=== PATIENT | female | born 1995 | race American Indian/Alaskan Native ===

== ENCOUNTER 2018-02-24 11:03 | Emergency (ER) | payer SELFPAY ==
[2018-02-24 11:16] VITALS: BP 110/70
[2018-02-24 11:41] LABS: Basophils # (Auto) 0.1 K/mm3 (0.0-0.1); Basophils % (Auto) 0.7 % (0.0-1.8); Eosinophils # (Auto) 0.4 K/mm3 (0.0-0.4); Eosinophils % (Auto) 3.3 % (0.0-4.3); Hematocrit 35.4 % (30.3-42.9); Hemoglobin 11.3 gm/dl (10.1-14.3); Lymphocytes # (Auto) 1.8 K/mm3 (1.2-5.4); Lymphocytes % (Auto) 16.9 % (13.4-35.0); Mean Corpuscular HGB Conc 32 % (30-34); Monocytes # (Auto) 0.9 K/mm3 (0.0-0.8); Monocytes % (Auto) 8.7 % (0.0-7.3); Platelet Count 297 K/mm3 (140-440); Red Blood Count 5.25 M/mm3 (3.65-5.03); Red Cell Distribution Width 19.2 % (13.2-15.2)
[2018-02-24 11:51] LABS: Mean Corpuscular Hemoglobin 21 pg (28-32); Mean Corpuscular Volume 68 fl (79-97)
[2018-02-24 11:55] LABS: Albumin 3.9 g/dL (3.9-5); BUN/Creatinine Ratio 8; Blood Urea Nitrogen 5 mg/dL (7-17); Calcium 9.1 mg/dL (8.4-10.2); Hemolysis Index 0
[2018-02-24 11:56] LABS: Alanine Aminotransferase < 5 units/L (7-56)
[2018-02-24 12:01] LABS: Bilirubin,Urine NEG (Negative); Blood,Urine NEG (Negative); Color,Urine Yellow (Yellow); Mucus,Urine 3+ /HPF; Protein,Urine <15 mg/dL mg/dL (Negative)
--- NOTE | 2018-02-24 13:47 | Emergency Department Report ---
Blank Doc - Documentation Documentation: Patient is a 23-year-old female who has not had a bowel movement approximately 1 week. Patient feels a pressure sensation in the left lower quadrant suprapubic region. The patient states she's also has some mild stomach upset. Patient will have x-ray of the abdomen performed.
--- NOTE | 2018-02-24 14:26 | XRay Report ---
ABDOMINAL SERIES: History: Abdominal pain. Erect chest film shows no acute or significant changes involving the heart or lung plata. There is no evidence of free air beneath the diaphragms. The gas pattern within the abdomen is unremarkable. There is no evidence of bowel dilatation, significant air-fluid levels, or masses. Organ shadows are unremarkable. IMPRESSION: Abdominal series within normal limits.
--- NOTE | 2018-02-24 14:37 | Emergency Department Report ---
HPI - General Chief Complaint: Abdominal Pain Time Seen by Provider: 02/24/18 13:42 - HPI HPI: This is a 23-year-old female with no prior medical history who presents to ED complaining of constipation for about a week. Patient states that she has been eating a lot of junk food as she is in college and has not been eating well. Patient states she drinks some fluids and eat cafeteria food. She states that couple days ago she uses history which allowed her to use the bathroom. She denies fever assess show/nausea vomiting abdominal , chest pain and blurry vision or any other problems. ED Past Medical Hx - Past Medical History Previous Medical History?: No - Surgical History Past Surgical History?: No - Social History Smoking Status: Never Smoker Substance Use Type: None - Medications Home Medications: Home Medications Medication Instructions Recorded Confirmed Last Taken Type Magnesium Citrate [Citrate of 296 ml PO BID #1 solution 02/24/18 Unknown Rx Magnesia] ED Review of Systems ROS: Stated complaint: LOWER STOAMCH PAIN, SPITTING UP BLOOD, NO BOWELS Other details as noted in HPI Constitutional: denies: chills, fever Eyes: denies: eye pain, eye discharge, vision change ENT: denies: ear pain, throat pain Respiratory: denies: cough, shortness of breath, wheezing Cardiovascular: denies: chest pain, palpitations Endocrine: no symptoms reported Gastrointestinal: denies: abdominal pain, nausea, diarrhea Genitourinary: denies: urgency, dysuria, discharge Musculoskeletal: denies: back pain, joint swelling, arthralgia Skin: denies: rash, lesions Neurological: denies: headache, weakness, paresthesias Psychiatric: denies: anxiety, depression Hematological/Lymphatic: denies: easy bleeding, easy bruising Physical Exam - Physical Exam Vital Signs: Vital Signs 02/24/18 11:12 Temperature 99.9 F H Pulse Rate 91 H Respiratory 18 Rate Blood Pressure 110/70 O2 Sat by Pulse 96 Oximetry Physical Exam: GENERAL: Alert and oriented x3, no apparent distress, Normal Gait, atraumatic. HEAD: Head is normocephalic and a-traumatic. MOUTH:Mouth is well hydrated and without lesions. Tonsils nonerythematous or swollen, Uvula midline, Tongue not elevated. Mucous membranes are moist. Posterior pharynx clear, no exudate or lesions. Patent airways. NECK: Supple. Non edematous, No carotid bruits. No lymphadenopathy or thyromegaly. No C-spine tenderness LUNGS: Symetrical with respiration, No wheezing, no rales or crackles, CTAB. HEART: S1, S2 present, regular rate and rhythm without murmur, no rubs, no gallops. Non tender to palpation ABDOMEN: No organomegaly was noted,Positive bowel sounds, soft, and non- distended. . Nontender to palpation on all Quadrants, NO CVA tenderness. SKIN: Warm and dry, No lesions, No ulceration or induration present. ED Course Vital Signs 02/24/18 11:12 Temperature 99.9 F H Pulse Rate 91 H Respiratory 18 Rate Blood Pressure 110/70 O2 Sat by Pulse 96 Oximetry ED Medical Decision Making - Lab Data Result diagrams: 02/24/18 11:24 02/24/18 11:24 Temp Pulse Resp BP Pulse Ox 99.9 F H 91 H 18 110/70 96 02/24/18 11:12 02/24/18 11:12 02/24/18 11:12 02/24/18 11:12 02/24/18 11:12 Laboratory Last Values WBC 10.7 K/mm3 (4.5-11.0) 02/24/18 11:24 RBC 5.25 M/mm3 (3.65-5.03) H 02/24/18 11:24 Hgb 11.3 gm/dl (10.1-14.3) 02/24/18 11:24 Hct 35.4 % (30.3-42.9) 02/24/18 11:24 MCV 68 fl (79-97) L 02/24/18 11:24 MCH 21 pg (28-32) L 02/24/18 11:24 MCHC 32 % (30-34) 02/24/18 11:24 RDW 19.2 % (13.2-15.2) H 02/24/18 11:24 Plt Count 297 K/mm3 (140-440) 02/24/18 11:24 Lymph % (Auto) 16.9 % (13.4-35.0) 02/24/18 11:24 [place] % (Auto) 8.7 % (0.0-7.3) H 02/24/18 11:24 Eos % (Auto) 3.3 % (0.0-4.3) 02/24/18 11:24 Baso % (Auto) 0.7 % (0.0-1.8) 02/24/18 11:24 Lymph # 1.8 K/mm3 (1.2-5.4) 02/24/18 11:24 [place] # 0.9 K/mm3 (0.0-0.8) H 02/24/18 11:24 Eos # 0.4 K/mm3 (0.0-0.4) 02/24/18 11:24 Baso # 0.1 K/mm3 (0.0-0.1) 02/24/18 11:24 Seg Neutrophils % 70.4 % (40.0-70.0) H 02/24/18 11:24 Seg Neutrophils # 7.5 K/mm3 (1.8-7.7) 02/24/18 11:24 Sodium 139 mmol/L (137-145) 02/24/18 11:24 Potassium 3.5 mmol/L (3.6-5.0) L 02/24/18 11:24 Chloride 97.4 mmol/L (98-107) L 02/24/18 11:24 Carbon Dioxide 30 mmol/L (22-30) 02/24/18 11:24 Anion Gap 15 mmol/L 02/24/18 11:24 BUN 5 mg/dL (7-17) L 02/24/18 11:24 Creatinine 0.6 mg/dL (0.7-1.2) L 02/24/18 11:24 Estimated GFR > 60 ml/min 02/24/18 11:24 BUN/Creatinine Ratio 8 % 02/24/18 11:24 Glucose 100 mg/dL (65-100) 02/24/18 11:24 Calcium 9.1 mg/dL (8.4-10.2) 02/24/18 11:24 Total Bilirubin 0.80 mg/dL (0.1-1.2) 02/24/18 11:24 AST 9 units/L (5-40) 02/24/18 11:24 ALT < 5 units/L (7-56) L 02/24/18 11:24 Alkaline Phosphatase 74 units/L (35-129) 02/24/18 11:24 Total Protein 8.2 g/dL (6.3-8.2) 02/24/18 11:24 Albumin 3.9 g/dL (3.9-5) 02/24/18 11:24 Albumin/Globulin Ratio 0.9 % 02/24/18 11:24 HCG, Qual Negative (Negative) 02/24/18 11:24 Urine Color Yellow (Yellow) 02/24/18 11:17 Urine Turbidity Clear (Clear) 02/24/18 11:17 Urine pH 5.0 (5.0-7.0) 02/24/18 11:17 Ur Specific [place] 1.020 (1.003-1.030) 02/24/18 11:17 Urine Protein <15 mg/dl mg/dL (Negative) 02/24/18 11:17 Urine Glucose (UA) Neg mg/dL (Negative) 02/24/18 11:17 Urine Ketones Tr mg/dL (Negative) 02/24/18 11:17 Urine Blood Neg (Negative) 02/24/18 11:17 Urine Nitrite Neg (Negative) 02/24/18 11:17 Urine Bilirubin Neg (Negative) 02/24/18 11:17 Urine Urobilinogen 4.0 mg/dL (<2.0) 02/24/18 11:17 Ur Leukocyte Esterase Neg (Negative) 02/24/18 11:17 Urine WBC (Auto) 3.0 /HPF (0.0-6.0) 02/24/18 11:17 Urine RBC (Auto) 4.0 /HPF (0.0-6.0) 02/24/18 11:17 U Epithel Cells (Auto) 2.0 /HPF (0-13.0) 02/24/18 11:17 Urine Mucus 3+ /HPF 02/24/18 11:17 - Radiology Data Radiology results: report reviewed, image reviewed Fluoro Time In Minutes: ABDOMINAL SERIES: History: Abdominal pain. Erect chest film shows no acute or significant changes involving the heart or lung plata. There is no evidence of free air beneath the diaphragms. The gas pattern within the abdomen is unremarkable. There is no evidence of bowel dilatation, significant air-fluid levels, or masses. Organ shadows are unremarkable. IMPRESSION: Abdominal series within normal limits. Transcribed By: TTR Dictated By: SANTI BLAIR JR, MD Electronically Authenticated By: SANTI BLAIR JR, MD Signed Date/Time: 02/24/18 1417 - Medical Decision Making 23-year-old female presents to constipation. ED course: Discussed the patient to increase fluid intake increase fiber in diet Discussed to follow up with primary care physician Patient has no other complaints or any other problems Vital signs are stable patient i no acute distress. Critical care attestation.: If time is entered above; I have spent that time in minutes in the direct care of this critically ill patient, excluding procedure time. ED Disposition Clinical Impression: Acute constipation Disposition: DC-01 TO HOME OR SELFCARE Is pt being admited?: No Does the pt Need Aspirin: No Condition: Stable Instructions: High Fiber Diet (ED), Constipation (ED) Additional Instructions: Make sure to follow up with the primary care physician as discussed. Take all your medications as you've been prescribed. If you have any worsening symptoms or develop new symptoms please return to ED immediately. Prescriptions: Magnesium Citrate [Citrate of Magnesia] 296 ml PO BID #1 solution Referrals: JESÚS MENSAH MD [Primary Care Provider] - 3-5 Days [facility] [Outside] - 3-[address] [facility] [Outside] - 3-5 Days [facility] [Outside] - 3-5 Days Forms: Work/School Release Form(ED) Time of Disposition: 15:10
== END 2018-02-24 15:20 | disposition home or self-care (01) ==
LOC: ED 11:03
DX: K59.09 Other constipation (principal)
CPT/HCPCS: 36415; 74022; 80053; 81001; 84703; 85025; 99284

== ENCOUNTER 2019-09-17 23:33 | Emergency (ER) | payer SELFPAY ==
[2019-09-17 23:41] VITALS: BP 128/77
[2019-09-18] MEDS ORDERED: ACETAMINOPHEN 500 MG TAB PO ONE (00:52)
[2019-09-18 00:54] LABS: Hematocrit 25.5 % (30.3-42.9); Hemoglobin 7.6 gm/dl (10.1-14.3); Mean Corpuscular HGB Conc 30 % (30-34); Platelet Count 220 K/mm3 (140-440); Red Blood Count 4.68 M/mm3 (3.65-5.03)
[2019-09-18 00:57] LABS: Mean Corpuscular Volume 55 fl (79-97); Red Cell Distribution Width 20.7 % (13.2-15.2)
[2019-09-18 01:51] LABS: Anisocytosis 1+; Basophils % (Manual) 0 % (0.0-1.8); Hypochromasia 3+; Total Cells Counted 100
[2019-09-18 01:52] LABS: Large Platelets 1+; Tear Drop Cells 1+
[2019-09-18 01:54] LABS: Bilirubin,Urine NEG (Negative); Blood,Urine MOD (Negative); Color,Urine Yellow (Yellow); Mucus,Urine 3+ /HPF
[2019-09-18 01:55] LABS: Alanine Aminotransferase 6 units/L (7-56); Albumin 4.2 g/dL (3.9-5); BUN/Creatinine Ratio 15; Blood Urea Nitrogen 9 mg/dL (7-17); Calcium 8.8 mg/dL (8.4-10.2); Hemolysis Index 1
[2019-09-18 01:58] LABS: Ovalocytes 1+; Platelet Estimate Consistent w Auto
--- NOTE | 2019-09-18 02:46 | Ultrasound Report ---
ULTRASOUND PELVIS INDICATION / CLINICAL INFORMATION: Pelvic pain and vaginal bleeding. TECHNIQUE: Transabdominal. Transvaginal Duplex Color Doppler used: Yes. COMPARISON: None available FINDINGS: UTERUS: Present. - Appearance (if present): No significant abnormality. - Size in cm (if present): 7.8 x 3.6 x 4.6 cm. - Endometrial Complex (if present): Small amount of fluid is present in the endometrial cavity... Thi ckness in cm (if measured) = 2-3 mm - Mass lesions: None. - Additional findings: None. RIGHT ADNEXA: No significant ovarian cyst or mass. Normal color Doppler blood flow. Right ovary measu res 4.2 x 1.6 x 3.0 cm LEFT ADNEXA: No significant ovarian cyst or mass. Normal color Doppler blood flow. Left ovary measure s 3.2 x 2.4 x 4.8 cm FREE FLUID: Mild to moderate amount of free fluid is present in the posterior cul-de-sac ADDITIONAL FINDINGS: None. IMPRESSION: 1. Small amount of fluid present within the endometrial cavity. Endometrial complex is not abnormally thickened. 2. Mild to moderate amount of free fluid in the posterior cul-de-sac, nonspecific. No adnexal mass or cyst identified. Signer Name: Kaelyn Mckeon MD Signed: 09/18/2019 2:41 AM Workstation Name: [email or web address]
--- NOTE | 2019-09-18 03:50 | Emergency Department Report ---
ED Female HPI - General Chief complaint: Abdominal Pain Stated complaint: BLEEDING AND CRAMPING Source: patient Mode of arrival: Ambulatory Limitations: No Limitations - History of Present Illness Initial comments: Patient is a nulliparous 24-year-old -[place] female who presented to the ED recombinant of acute onset vaginal bleeding for the last 3 days with pelvic pain. Patient states that she had home test that was positive twice on suspect that she may be 5 weeks gestation. Patient denies fever, chills, dysuria, vaginal discharge, diarrhea, nausea, vomiting, cough, chest pain, shortness of breath, low back pain or Sinus congestion and headache. MD Complaint: vaginal bleeding, pelvic pain -: Sudden, days(s) (3) Location: suprapubic, other (vaginal) Radiation: non-radiating Severity: severe Severity scale (0 -10): 7 Quality: cramping, sharp Consistency: constant Improves with: none Worsens with: none Are you Now?: Yes (Home tests positive) Last Menstrual Period: 08/09/19 EDC: 05/15/20 Associated Symptoms: denies other symptoms, vaginal bleeding, abdominal pain, hematuria. denies: nausea/vomiting, fever/chills, headaches, loss of appetite, dysuria, rash, shortness of breath, syncope, weakness - Related Data Sexually active: Yes : 0 Para: 0 A: 0 Previous Rx's Medication Instructions Recorded Last Taken Type Magnesium Citrate [Citrate of 296 ml PO BID #1 solution 02/24/18 Unknown Rx Magnesia] Ferrous Sulfate [Ferrous Sulfate 324 mg PO DAILY #60 tablet. 09/18/19 Unknown Rx 324 MG] Ibuprofen [Motrin] 600 mg PO Q8H PRN #30 tablet 09/18/19 Unknown Rx Allergies Allergy/AdvReac Type Severity Reaction Status Date / Time No Known Allergies Allergy Unverified 02/24/18 11:12 ED Review of Systems ROS: Stated complaint: BLEEDING AND CRAMPING Other details as noted in HPI Constitutional: denies: chills, fever Eyes: denies: eye pain, eye discharge, vision change ENT: denies: ear pain, throat pain Respiratory: denies: cough, shortness of breath, wheezing Cardiovascular: denies: chest pain, palpitations Endocrine: no symptoms reported Gastrointestinal: abdominal pain (suprapubic). denies: nausea, diarrhea Genitourinary: abnormal menses (vaginal bleeding). denies: urgency, dysuria, discharge Musculoskeletal: denies: back pain, joint swelling, arthralgia Skin: denies: rash, lesions Neurological: denies: headache, weakness, paresthesias Psychiatric: denies: anxiety, depression Hematological/Lymphatic: denies: easy bleeding, easy bruising ED Past Medical Hx - Past Medical History Previous Medical History?: No - Surgical History Past Surgical History?: No - Social History Smoking Status: Former Smoker Substance Use Type: Marijuana - Medications Home Medications: Home Medications Medication Instructions Recorded Confirmed Last Taken Type Magnesium Citrate [Citrate of 296 ml PO BID #1 solution 02/24/18 Unknown Rx Magnesia] Ferrous Sulfate [Ferrous Sulfate 324 mg PO DAILY #60 tablet.dr 09/18/19 Unknown Rx 324 MG] Ibuprofen [Motrin] 600 mg PO Q8H PRN #30 tablet 09/18/19 Unknown Rx ED Physical Exam - General Limitations: No Limitations General appearance: alert, in no apparent distress - Head Head exam: Present: atraumatic, normocephalic, normal inspection - Eye Eye exam: Present: normal appearance, PERRL, EOMI Pupils: Present: normal accommodation - ENT ENT exam: Present: normal exam, normal orophraynx, mucous membranes moist, TM's normal bilaterally, normal external ear exam - Neck Neck exam: Present: normal inspection, full ROM - Respiratory Respiratory exam: Present: normal lung sounds bilaterally. Absent: respiratory distress, wheezes, rales, rhonchi, chest wall tenderness, accessory muscle use, decreased breath sounds, prolonged expiratory - Cardiovascular Cardiovascular Exam: Present: regular rate, normal rhythm, normal heart sounds. Absent: systolic murmur, diastolic murmur, rubs, gallop - GI/Abdominal GI/Abdominal exam: Present: soft, tenderness (suprapubic tenderness), normal bowel sounds. Absent: hyperactive bowel sounds - Extremities Exam Extremities exam: Present: normal inspection, full ROM, normal capillary refill - Back Exam Back exam: Present: normal inspection, full ROM. Absent: muscle spasm, paraspinal tenderness, vertebral tenderness - Neurological Exam Neurological exam: Present: alert, oriented X3, CN II-XII intact, normal gait, reflexes normal - Psychiatric Psychiatric exam: Present: normal affect, normal mood - Skin Skin exam: Present: warm, dry, intact, normal color. Absent: rash ED Course Vital Signs 09/17/19 09/18/19 23:36 00:59 Temperature 98.3 F Pulse Rate 74 Respiratory 18 16 Rate Blood Pressure 128/77 O2 Sat by Pulse 100 Oximetry ED Medical Decision Making - Lab Data Result diagrams: 09/17/19 23:58 09/18/19 01:02 - Radiology Data Radiology results: report reviewed, image reviewed Findings [facility] [address] [place] [address] Ultrasound Report Signed Patient: NILDA CASH MR#: [id number] : 1995 Acct:[id number] Age/Sex: 24 / F ADM Date: 09/17/19 Loc: ED Attending Dr: Ordering Physician: EDNA RUIZ Date of Service: 09/18/19 Procedure(s): US transvaginal Accession Number(s): [id number] cc: EDNA RUIZ ULTRASOUND PELVIS INDICATION / CLINICAL INFORMATION: Pelvic pain and vaginal bleeding. TECHNIQUE: Transabdominal. Transvaginal Duplex Color Doppler used: Yes. COMPARISON: None available FINDINGS: UTERUS: Present. - Appearance (if present): No significant abnormality. - Size in cm (if present): 7.8 x 3.6 x 4.6 cm. - Endometrial Complex (if present): Small amount of fluid is present in the endometrial cavity... Thickness in cm (if measured) = 2-3 mm - Mass lesions: None. - Additional findings: None. RIGHT ADNEXA: No significant ovarian cyst or mass. Normal color Doppler blood flow. Right ovary measures 4.2 x 1.6 x 3.0 cm LEFT ADNEXA: No significant ovarian cyst or mass. Normal color Doppler blood f low. Left ovary measures 3.2 x 2.4 x 4.8 cm FREE FLUID: Mild to moderate amount of free fluid is present in the posterior cul-de-sac ADDITIONAL FINDINGS: None. IMPRESSION: 1. Small amount of fluid present within the endometrial cavity. Endometrial complex is not abnormally thickened. 2. Mild to moderate amount of free fluid in the posterior cul-de-sac, nonspecific. No adnexal mass or cyst identified. Signer Name: Kaelyn Mckeon MD Signed: 09/18/2019 2:41 AM Workstation Name: [id number] Transcribed By: Dictated By: Kaelyn Mckeon MD Electronically Authenticated By: Kaelyn Mckeon MD Signed Date/Time: 09/18/19240 DD/ 7 TD/TT: - Medical Decision Making This is a 35-year-old female with a history of chronic iron deficiency anemia who presented to the ED with vaginal bleeding and pelvic pain for 3 days. Patient had stated that she had a positive home test. However in the ED, hCG Quant is negative. In the ED, patient is alert and oriented 3 in destruction and distress. Lab test results show hemoglobin of 7.6, hematocrit of 25.5 and MCV of 55. Lipase level is a 89 and hCG Quant is negative with urinalysis that showed moderate blood in the urine and no urinary tract infection. Transvaginal ultrasound and pelvic ultrasounds show no ovarian cysts bilaterally. Patient was discharged home on iron tablets and pain medications and advised follow-up with [facility] physician in 5-7 days for reevaluation or return to the ED immediately if symptoms get worse. - Differential Diagnosis ; UTI; Dysmenorrhea; Dysfunctional Uterine bleeding; Anemia Critical care attestation.: If time is entered above; I have spent that time in minutes in the direct care of this critically ill patient, excluding procedure time. ED Disposition Clinical Impression: Dysmenorrhea, Iron deficiency anemia due to chronic blood loss, Metrorrhagia Disposition: - TO HOME OR SELFCARE Is pt being admited?: No Does the pt Need Aspirin: No Condition: Stable Instructions: Abdominal Pain (ED), Dysmenorrhea (ED), Iron Deficiency Anemia (ED) Additional Instructions: Take medications with food, drink plenty fluids and follow-up with your [facility] physician in 7-10 days for reevaluation. Return to the ED immediately if symptoms get worse. Prescriptions: Ferrous Sulfate [Ferrous Sulfate 324 MG] 324 mg PO DAILY #60 tablet. Ibuprofen [Motrin] 600 mg PO Q8H PRN #30 tablet PRN Reason: Pain Referrals: PRIMARY CARE, [Primary Care Provider] - 3-5 Days Time of Disposition: 03:48 Print Language: LATVIAN
== END 2019-09-18 04:50 | disposition left against medical advice (07) ==
LOC: ED 23:33
DX: O20.0 Threatened abortion (principal); O99.011 Anemia complicating pregnancy, first trimester; Z32.01 Encounter for pregnancy test, result positive; Z79.1 Long term (current) use of non-steroidal anti-inflammatories (NSAID); Z79.899 Other long term (current) drug therapy; F12.10 Cannabis abuse, uncomplicated; Z87.891 Personal history of nicotine dependence; Z3A.01 Less than 8 weeks gestation of pregnancy
CPT/HCPCS: 36415; 76830; 76856; 80053; 81001; 83690; 84702; 85007; 85025; 86900; 86901; 99284

== ENCOUNTER 2020-01-10 16:39 | Emergency (ER) | payer SELFPAY ==
[2020-01-10 16:55] VITALS: BP 125/75
--- NOTE | 2020-01-10 16:59 | Emergency Department Report ---
Blank Doc - Documentation Documentation: 24-year-old female that presents with left sided facial drooping, unable to cl ose eye, or unable to wrinkle forehead. Exam: no one sided weakness. Normal gait. EMOI within normal limits. Speech within normal limits. no visual loss. balance within normal limits. exam consistence with bells palsy This initial assessment/diagnostic orders/clinical plan/treatment(s) is/are subject to change based on patient's health status, clinical progression and re- assessment by fellow clinical providers in the ED. Further treatment and workup at subsequent clinical providers discretion. Patient/guardians urged not to elope from the ED as their condition may be serious if not clinically assessed and managed. Initial orders include: 1- Patient sent to [facility] for further evaluation and treatment
[2020-01-10] MEDS ORDERED: KETOROLAC 30 MG/1 ML INJ IM ONE (19:50)
[2020-01-10] MEDS ORDERED: dexAMETHasone 20 MG/5 ML VIAL IM ONE (19:50)
--- NOTE | 2020-01-10 22:03 | Emergency Department Report ---
ED General Adult HPI - General Chief complaint: Neuro Symptoms/Deficit Stated complaint: LT SIDE OF TINGLE/FACE NUMB Time Seen by Provider: 01/10/20 16:57 Source: patient Mode of arrival: Ambulatory Limitations: No Limitations - History of Present Illness Initial comments: Patient is a 24-year-old -Iranian female with no past medical history who presents to the ED with complaint of acute onset persistent sore throat, dysphagia, and left-sided facial deformity for the last 2 days. Patient states that she has also had persistent headache with nasal and sinus congestion. Patient states that whenever she smiles she notices that her lips are deformed and that she is unable to close her left eye. Patient denies dizziness, nausea, vomiting, diarrhea, chest pain, shortness of breath, fever, chills, change in vision, syncope or abdominal pain and dysuria. MD Complaint: left-sided facial palsy; sore throat -: Sudden, days(s) (2) Location: face (left-sided palsy), mouth (left sided facial palsy) Radiation: non-radiation Severity scale (0 -10): 3 Quality: aching, sharp Consistency: constant Improves with: none Worsens with: none Associated Symptoms: denies other symptoms, other (sore throat). denies: confusion, chest pain, cough, diaphoresis, fever/chills, headaches, loss of appetite, malaise, nausea/vomiting, rash, seizure, shortness of breath, syncope, weakness Treatments Prior to Arrival: none - Related Data Previous Rx's Medication Instructions Recorded Last Taken Type Magnesium Citrate [Citrate of 296 ml PO BID #1 solution 02/24/18 Unknown Rx Magnesia] Ferrous Sulfate [Ferrous Sulfate 324 mg PO DAILY #60 tablet.dr 09/18/19 Unknown Rx 324 MG] Ibuprofen [Motrin] 600 mg PO Q8H PRN #30 tablet 09/18/19 Unknown Rx Acyclovir 400 mg PO Q8H #30 tablet 01/10/20 Unknown Rx Azithromycin [Zithromax Z-OUMAR] 250 mg PO DAILY #6 tablet 01/10/20 Unknown Rx Ibuprofen [Motrin] 600 mg PO Q8H PRN #24 tablet 01/10/20 Unknown Rx Lidocaine Viscous 2% 10 ml PO Q6H PRN #120 ml 01/10/20 Unknown Rx Prednisone [predniSONE 10 mg 10 mg PO .TAPER #21 tab.ds.pk 01/10/20 Unknown Rx (6-Day Pack, 21 Tabs)] Allergies Allergy/AdvReac Type Severity Reaction Status Date / Time No Known Allergies Allergy Unverified 02/24/18 11:12 ED Review of Systems ROS: Stated complaint: LT SIDE OF TINGLE/FACE NUMB Other details as noted in HPI Constitutional: denies: chills, fever Eyes: denies: eye pain, eye discharge, vision change ENT: throat pain, other (Left-sided facial palsy). denies: ear pain Respiratory: denies: cough, shortness of breath, wheezing Cardiovascular: denies: chest pain, palpitations Endocrine: no symptoms reported Gastrointestinal: denies: abdominal pain, nausea, diarrhea Genitourinary: denies: urgency, dysuria, discharge Musculoskeletal: denies: back pain, joint swelling, arthralgia Skin: denies: rash, lesions Neurological: other (left-sided facial palsy). denies: headache, weakness, paresthesias Psychiatric: denies: anxiety, depression Hematological/Lymphatic: denies: easy bleeding, easy bruising ED Past Medical Hx - Past Medical History Previous Medical History?: No - Surgical History Past Surgical History?: No - Social History Smoking Status: Never Smoker Substance Use Type: Marijuana - Medications Home Medications: Home Medications Medication Instructions Recorded Confirmed Last Taken Type Magnesium Citrate [Citrate of 296 ml PO BID #1 solution 02/24/18 Unknown Rx Magnesia] Ferrous Sulfate [Ferrous Sulfate 324 mg PO DAILY #60 tablet. 09/18/19 Unknown Rx 324 MG] Ibuprofen [Motrin] 600 mg PO Q8H PRN #30 tablet 09/18/19 Unknown Rx Acyclovir 400 mg PO Q8H #30 tablet 01/10/20 Unknown Rx Azithromycin [Zithromax Z-OUAMR] 250 mg PO DAILY #6 tablet 01/10/20 Unknown Rx Ibuprofen [Motrin] 600 mg PO Q8H PRN #24 tablet 01/10/20 Unknown Rx Lidocaine Viscous 2% 10 ml PO Q6H PRN #120 ml 01/10/20 Unknown Rx Prednisone [predniSONE 10 mg 10 mg PO .TAPER #21 tab.ds.pk 01/10/20 Unknown Rx (6-Day Pack, 21 Tabs)] ED Physical Exam - General Limitations: No Limitations General appearance: alert, in no apparent distress - Head Head exam: Present: atraumatic, normocephalic - Eye Eye exam: Present: normal appearance, PERRL, EOMI Pupils: Present: normal accommodation - ENT ENT exam: Present: mucous membranes moist, TM's normal bilaterally, normal external ear exam, other (erythematous swollen tonsils with mild exudates) - Neck Neck exam: Present: normal inspection, full ROM. Absent: tenderness, meningismus, lymphadenopathy, thyromegaly - Respiratory Respiratory exam: Present: normal lung sounds bilaterally. Absent: respiratory distress, wheezes, rales, rhonchi, stridor, chest wall tenderness, accessory muscle use - Cardiovascular Cardiovascular Exam: Present: regular rate, normal rhythm, normal heart sounds. Absent: systolic murmur, diastolic murmur, rubs, gallop - GI/Abdominal GI/Abdominal exam: Present: soft, normal bowel sounds. Absent: tenderness, guarding, rebound, hyperactive bowel sounds, hypoactive bowel sounds - Extremities Exam Extremities exam: Present: normal inspection, full ROM, normal capillary refill - Back Exam Back exam: Present: normal inspection, full ROM. Absent: tenderness, CVA tenderness (R), CVA tenderness (L), muscle spasm, paraspinal tenderness, vertebral tenderness - Neurological Exam Neurological exam: Present: alert, oriented X3, CN II-XII intact, normal gait, reflexes normal - Psychiatric Psychiatric exam: Present: normal affect, normal mood - Skin Skin exam: Present: warm, dry, intact, normal color. Absent: rash ED Course Vital Signs 01/10/20 01/10/20 16:52 16:55 Temperature 98.9 F 98.9 F Pulse Rate 76 76 Respiratory 18 18 Rate Blood Pressure 125/75 125/75 O2 Sat by Pulse 100 100 Oximetry ED Medical Decision Making - Medical Decision Making Patient is a 24-year-old -Iranian female with no past medical history presented to the ED with acute onset sore throat with dysphagia, swollen tonsils and left-sided palsy for the last 2 days. Patient states that in the last 12 hours left-sided palsy has worsened such that whenever she smiles she has a deformity in her lips and mouth. In the ED, patient is alert and oriented x3 and is not in distress. Patient was treated in the ED with steroid and pain medications. Rapid strep test was negative. Patient empirically treated for acute pharyngitis and Reinoso's palsy, and was discharged home on medications and advised to follow-up with her primary care physician in 7 to 10 days for reevaluation or return to the ED immediately if symptoms get worse. - Differential Diagnosis Reinoso's palsy; Strep pharyngitis; URI Critical care attestation.: If time is entered above; I have spent that time in minutes in the direct care of this critically ill patient, excluding procedure time. ED Disposition Clinical Impression: Left-sided Reinoso's palsy Acute pharyngitis Qualifiers: Pharyngitis/tonsillitis etiology: other specified organisms Qualified Code(s): J02.8 - Acute pharyngitis due to other specified organisms Disposition: TO HOME OR SELFCARE Is pt being admited?: No Does the pt Need Aspirin: No Condition: Stable Instructions: Pharyngitis (ED), Reinoso Palsy (ED) Additional Instructions: Take medications with food, drink plenty fluids and follow-up with your primary care physician in 7 to 10 days for reevaluation. Return to the ED immediately if symptoms get worse. Prescriptions: Acyclovir 400 mg PO Q8H #30 tablet Lidocaine Viscous 2% 10 ml PO Q6H PRN #120 ml PRN Reason: Pain , Severe (7-10) Ibuprofen [Motrin] 600 mg PO Q8H PRN #24 tablet PRN Reason: Pain Prednisone [predniSONE 10 mg (6-Day Pack, 21 Tabs)] 10 mg PO .TAPER #21 tab.ds.pk Azithromycin [Zithromax Z-OUMAR] 250 mg PO DAILY #6 tablet Referrals: [facility] [Outside] - 7-10 days Time of Disposition: 21:58 Print Language: THAI
== END 2020-01-10 22:50 | disposition home or self-care (01) ==
LOC: ED 16:39
DX: J02.9 Acute pharyngitis, unspecified (principal); F12.10 Cannabis abuse, uncomplicated; Z79.1 Long term (current) use of non-steroidal anti-inflammatories (NSAID); Z79.899 Other long term (current) drug therapy
CPT/HCPCS: 87116; 87430; 96372; 99283; J1100; J1885